=== PATIENT | female | born 1955 | race African-American/Black ===

== ENCOUNTER → 2016-09-22 | Day surgery (SDC) | payer BC ==
[~2016-09-22] MED LIST: ALAVERT10 MG PO; AMITRIPTYLINE H25 MG PO; DIAZEPAM PO; EPCLUSA 400 MG1 EACH PO; ESOMEPRAZOLE MA40 MG PO; HYDROCHLOROTHIA25 MG PO; HYDROCODON-ACE1 EAC5 PO; HYDROCODONE APA PO; LISINOPRIL10 MG PO; MIRALAX17 GM PO; NITROFURANTOIN100 M3 PO; NORVASC10 MG PO; OMEPRAZOLE40 MG PO; PERCOCET5/325 PO; PREDNISONE PO; SYNTHROID PO; SYNTHROID0.1 MG PO; VICODIN 5/1 TAB 5/50 PO; XANAX1 MG PO
--- NOTE | ~2016-09-22 | OR ---
Unit #: [id number] #: [id number] Patient: ERASMO RICHARDS [id number] [address] [place], [place] [address] [id number] O MR#: [id number] NAME: ERASMO RICHARDS ROOM: Date of Procedure: 09/22/2016 Admission Date: 09/22/2016 Surgeon: Luther Connolly M.D. : 1955 Attending Physician: Luther Connolly M.D. Primary Care Physician: Caroline Guillen M.D. OPERATIVE REPORT PREOPERATIVE DIAGNOSES Herniated nucleus pulposus, radiculopathy, back pain. POSTOPERATIVE DIAGNOSES Herniated nucleus pulposus, radiculopathy, back pain. PROCEDURE PERFORMED Lumbar epidural steroid injection with intravenous sedation and fluoroscopic guidance for needle localization. INDICATIONS FOR PROCEDURE This is a 61-year-old female who presented with back and right lower extremity pain radiating to her foot, which failed to settle with conservative treatment. Workup demonstrated right-sided disk extrusion impinging the right S1 nerve root. Decision was made to give the patient a trial of epidural steroids. First injection resulted initial very good improvement of her symptom complex. She is actually pain-free, but then overdid things physically. This flared the pain back up. I did discuss the need to pace herself better with regard to her activities to avoid things that flared this and also regard to longer term treatment in that with her pathology. If this has not settled with conservative measures, she may require a surgical intervention. DESCRIPTION OF PROCEDURE The patient was placed in a seated position. Standard monitors were applied. 2 mg of Versed were given for sedation and anxiolysis, which were adequate. Vital signs remained stable. Sterile prep and drape then of the lumbar area was performed. The skin then at the L5 level was localized with 1% lidocaine. An 18-gauge BPG [place] needle was then advanced via loss of resistance technique and fluoroscopic guidance in toward the epidural space. The patient did not complain of pain or paresthesia during needle advancement. After confirming proper positioning with fluoroscopy and radiographic contrast, 80 mg of Depo-Medrol and 4 mL of 0.125% bupivacaine were deposited. The patient tolerated the procedure otherwise well and was discharged to recovery room in stable condition. Dictated by... Luther Connolly M.D. [facility] Unit #: [id number] #: [id number] Patient: ERASMO RICHARDS [place] TD: 09/22/2016 23:20 JOB #: [id number] OPERATIVE REPORT X Luthre Connolly MD X PROCEDURE OPERATIVE NOTE
== END | disposition home or self-care (01) ==
LOC: CCSC 09:07
DX: M51.17 Intervertebral disc disorders with radiculopathy, lumbosacral region (principal); B19.20 Unspecified viral hepatitis C without hepatic coma; Z88.8 Allergy status to other drugs, medicaments and biological substances
CPT/HCPCS: J1040; J2250

== ENCOUNTER → 2016-09-29 | Day surgery (SDC) | payer BC ==
--- NOTE | ~2016-09-29 | OR ---
Unit #: [id number] #: [id number] Patient: ERASMO RICHARDS [id number] [address] [place], [place] [address] [id number] O MR#: [id number] NAME: ERASMO RICHARDS ROOM: Date of Procedure: 09/29/2016 Admission Date: 09/29/2016 Surgeon: Luther Connolly M.D. : 1955 Attending Physician: Luther Connolly M.D. Primary Care Physician: Caroline Guillen M.D. OPERATIVE REPORT PREOPERATIVE DIAGNOSES Back pain, radiculopathy, herniated nucleus pulposus. POSTOPERATIVE DIAGNOSES Back pain, radiculopathy, herniated nucleus pulposus. PROCEDURE PERFORMED Lumbar epidural steroid injection with intravenous sedation and fluoroscopic guidance for needle localization. INDICATIONS FOR PROCEDURE The patient is a 61-year-old female presented with significant back and right lower extremity pain, radiating to her foot. Workup demonstrated right-sided extrusion impinging the right S1 nerve root with broad-based bulging and moderate changes with neuroforaminal narrowing at L3-4 and L4-5. The patient did not settle with conservative treatment. So, decision was made to give the patient a trial of epidural steroids, 2 of which were done to this point over the last several weeks. The first, which initially gave her very good improvement, the pain began to return though after a week or so. Second injection resulted much better, improved and maintained symptoms, helped both the back and leg. The patient has good response. We are going to proceed with a repeat and final injection at this point. The pain returns rapidly and maybe that there is too much impingement, she may require surgical reconsideration or possibly trial of a transforaminal injection of the right L5-S1 level. If she stays well for long amount of time, certainly could become symptomatic down the line and require epidurals again in the future. DESCRIPTION OF PROCEDURE The patient was placed in a seated position. Standard monitors were applied. 2 mg of Versed were given for sedation and anxiolysis, which were adequate. Vital signs remained stable. Sterile prep and drape then of the lumbar area was performed. The skin then at the L5 level was localized with 1% lidocaine. An 18-gauge [email or web address] needle was then advanced via loss of resistance technique and fluoroscopic guidance in toward the epidural space. After confirming proper positioning with fluoroscopy and radiographic contrast, 80 mg of Depo-Medrol and 4 mL of 0.125% bupivacaine were deposited. The patient tolerated the procedure otherwise well and was discharged to the recovery room in stable condition. Unit #: [id number] #: [id number] Patient: ERASMO RICHARDS Dictated by... Sarah Russ/misbah TD: 09/30/2016 03:04 JOB #: [id number] CC: Melly Holloway Aprn OPERATIVE REPORT X Luther Connolly MD X PROCEDURE OPERATIVE NOTE
== END | disposition home or self-care (01) ==
LOC: CCSC 09:06
DX: M51.16 Intervertebral disc disorders with radiculopathy, lumbar region (principal)
CPT/HCPCS: J1040; J2250

== ENCOUNTER 2017-02-25 22:59 | Emergency (ER) | payer BC ==
[~2017-02-25] VITALS: Ht 152.4 cm; Wt 76.2 kg
--- NOTE | ~2017-02-25 | CR72 ---
[facility] A Service [facility] RADIOLOGY TEXT RESULTS PATIENT: ERASMO RICHARDS LOCATION: [facility] : 57 UNIT #: [id number] AGE: [address]: Michael Field MD SEX: F ORDER DR: [id number] [facility] [address] [place], [place] [address] [id number] E MR#: [id number] Acc #: [id number] NAME: ERASMO RICHARDS : 1955 SEX: F STUDY DATE/TIME: 02/25/2017 23:53 UNIT: [facility] ROOM: STUDY DESCRIPTION: CR Chest Single View Portable Attending Physician: Michael Field M.D. Ordering Physician: Michael Field M.D. Primary Care Physician: Caroline Guillen M.D. MEDICAL IMAGING REPORT This report is preliminary unless electronic signature is present EXAM AP portable chest DATE 02/25/2017 HISTORY 61-year-old female with dizziness, shortness of breath, chest pain and nausea for 1-2 days. COMPARISON PA and lateral chest 02/20/2014 FINDINGS A single AP portable view of the chest shows both lungs to be clear. The heart is normal in size. The mediastinal contour is normal. No significant bone abnormalities are seen. IMPRESSION Normal portable chest. Dictated by... Susan Love M.D. THIS IS AN ELECTRONICALLY VERIFIED REPORT Susan Love M.D. at 02/26/2017 9:39 PM [facility] TD: 02/26/2017 16:29 JOB #: [id number] MEDICAL IMAGING REPORT [facility] A Service [facility] RADIOLOGY TEXT RESULTS PATIENT: ERASMO RICHARDS LOCATION: [facility] : 57 UNIT #: [id number] AGE: [address]: Michael Field MD SEX: F ORDER DR: Page 1 of 1 COPY
--- NOTE | ~2017-02-25 | EKG ---
PATIENT: ERASMO RICHARDS UNIT #: [id number] Ventricular Rate: 89 BPM Atrial Rate: 89 BPM P-R Interval: 154 ms QRS Duration: 68 ms Q-T Interval: 364 ms QTC Calculation(Bezet): 442 ms P [place]: 74 degrees Calculated R [place]: 65 degrees Calculated T [place]: 61 degrees Diagnosis Line: Normal sinus rhythm Diagnosis Line: Normal ECG Diagnosis Line: No previous ECGs available Diagnosis Line: Confirmed by FLO GATES MD ([id number]) on Diagnosis Line: 02/27/2017 8:56:16 AM INTERPRETING MD: KODY CASTRO
--- NOTE | ~2017-02-25 | CT16 ---
[facility] A Service [facility] RADIOLOGY TEXT RESULTS PATIENT: ERASMO RICHARDS LOCATION: [facility] : 57 UNIT #: [id number] AGE: [address]: Michael Field MD SEX: F ORDER DR: [id number] [facility] [address] [place], [place] [address] [id number] E MR#: [id number] Acc #: [id number] NAME: ERASMO RICHARDS : 1955 SEX: F STUDY DATE/TIME: 02/26/2017 1:22 UNIT: [facility] ROOM: STUDY DESCRIPTION: CT Angio Chest for PE Attending Physician: Michael Field M.D. Ordering Physician: Michael Field M.D. Primary Care Physician: Caroline Guillen M.D. MEDICAL IMAGING REPORT This report is preliminary unless electronic signature is present EXAM CT angiography of the chest with contrast, pulmonary embolism protocol. DATE 02/26/2017 HISTORY 61-year-old female with complaints of shortness of breath, dizziness, back pain, nausea since 17:30 02/25/2017. Elevated D-dimer 930. Hypertension. Smoking history. COMPARISON CTA chest PE protocol 11/14/2014. AP portable chest 11/26/2016. PROCEDURE 2 mm axial images through the chest during IV contrast administration. 3-D coronal MIP reformatted images were obtained. This CT exam was performed with one or more of the following radiation dose reduction techniques: Automatic exposure control, adjustment of mA and/or kV according to patient size, and iterative reconstruction. FINDINGS No pulmonary embolism. No thoracic aortic aneurysm or aortic dissection. No acute airspace disease. Benign calcified granuloma in the right upper lobe. No pericardial effusion, pleural effusion or pneumothorax. No pathologic adenopathy. Segmental thickening of the upper third of the thoracic esophagus. Small esophageal hiatal hernia. Included portions of the upper abdominal organs within normal limits. No acute osseous abnormalities. IMPRESSION 1. No pulmonary embolism. Clear lungs. No aortic aneurysm or aortic STS. [facility] A Service [facility] RADIOLOGY TEXT RESULTS PATIENT: ERASMO RICHARDS LOCATION: [facility] #: [id number] : 57 UNIT #: [id number] AGE: [address]: Michael Field MD SEX: F ORDER DR: dissection. 2. Thickening of the upper third of the thoracic esophagus. Correlate clinically for esophagitis symptoms. Endoscopy may prove helpful for further evaluation, if appropriate. Dictated by... Susan Love M.D. THIS IS AN ELECTRONICALLY VERIFIED REPORT Susan Love M.D. at 02/26/2017 9:38 PM [facility]/[place] TD: 02/26/2017 16:59 JOB #: [id number] MEDICAL IMAGING REPORT Page 1 of 1 COPY
[2017-02-25 23:50] LABS: BASOPHIL# 0.1 X10e3 (0-0.3); BASOPHIL% 0.8 % (0-2.5); EOSINOPHIL# 0.3 X10e3 (0-0.7); EOSINOPHIL% 3.2 % (0.0-7.0); HEMATOCRIT 40.5 % (35.0-45.0); HEMOGLOBIN 13.3 gm/dL (12.0-16.0); LYMPHOCYTE# 2.5 X10e3 (1.0-3.5); LYMPHOCYTE% 30.7 % (17.0-45.0); MEAN CORPUSCULAR HEMOGLOBIN 29.3 PG (28-34); MEAN CORPUSCULAR HGB CONC 32.9 g/dL (30-36); MEAN PLATELET VOLUME 8.1 FL (6.5-11.5); MONOCYTE# 0.8 X10e3 (0-1.0); MONOCYTE% 10.6 % (3.0-12.0); NEUTROPHIL# 4.4 X10e3 (1.5-7.1); NEUTROPHIL% 54.7 % (40-75); PLATELET COUNT 341 X10e3 (140-420); RED BLOOD COUNT 4.55 X10e (3.90-5.30); RED CELL DISTRIBUTION WIDTH 13.6 % (11.0-15.5)
[2017-02-25 23:52] LABS: DIFF IND NO
[2017-02-26 00:09] LABS: POC - CKMB 1.1 ng/mL (0.0-7.9); POC - TROPONIN <0.05 ng/mL (<=0.05)
[2017-02-26 00:12] LABS: ALBUMIN SERUM 4.2 g/dL (3.5-5.0); BILIRUBIN, DIRECT 0.1 mg/dL (0.0-0.2); BILIRUBIN,INDIRECT 0.4 mg/dL (0.0-0.9); BILIRUBIN,TOTAL 0.5 mg/dL (0.2-2.0); CALCIUM SERUM 9.2 mg/dL (8.4-10.2); CREATININE SERUM 0.9 mg/dL (0.6-1.4); GLOM FILT RATE Estimated 80.6 mL/min (>60); POTASSIUM 3.8 mmol/L (3.5-5.1); PROTEIN TOTAL SERUM 7.9 g/dL (6.0-8.3)
[2017-02-26 00:51] LABS: URINE SOURCE CLEAN CATCH
[2017-02-26 00:55] LABS: URINE APPEARANCE CLEAR; URINE BILIRUBIN NEG (NEG); URINE BLOOD NEG (NEG); URINE COLOR YELLOW; URINE GLUCOSE NEG (NEG); URINE KETONE NEG (NEG); URINE LEUKOCYTE ESTERASE 2+ (NEG); URINE NITRATE NEG (NEG); URINE PROTEIN NEG (NEG); URINE SPECIFIC GRAVITY 1.006 (1.003-1.035); URINE UROBILINOGEN 0.2 MG/DL (NEG)
[2017-02-26 00:58] LABS: URBCS1 AUWI 0-2 /[HPF] (0-2); URINE BACTERIA AUWI NEG (NEGATIVE); URINE SQUAMOUS EPITHELIAL CELL NONE SEEN /[HPF]
[2017-02-26 01:16] LABS: CULTURE INDICATED? NO; UWBCS1 AUWI NEG (0-5)
== END 2017-02-26 02:52 | disposition home or self-care (01) ==
LOC: CED 22:59
PROVIDERS: Emergency Medicine
DX: H81.399 Other peripheral vertigo, unspecified ear (principal); F17.200 Nicotine dependence, unspecified, uncomplicated; I10 Essential (primary) hypertension; Z88.8 Allergy status to other drugs, medicaments and biological substances
CPT/HCPCS: 36415; 71010; 71275; 80048; 80076; 81003; 82553; 84484; 85025; 85379; 93005; 96361; 96374; 96375; 96376; 99285; J2405; J3360; Q9967